=== PATIENT | female | born 1950 | race Caucasian/White ===

== ENCOUNTER → 2017-08-23 | Outpatient (CLI) | payer MEDICARE, OTHER ==
[~2017-08-23] MED LIST: ASPI1TAB57 PO; CALC1TAB87 PO; CHOL5000 PO; HUMALOG SQ; LEVEMIR SQ; LEVO137T2 PO; LORA-650 PO; LOSA25TA PO; MAGN250T11 PO; NUED20CA PO; PRAV40TA2 PO; PRAV80TA2 PO; RANI300T PO; VITA500T4 PO
[2017-08-23 09:57] LABS: AUTOMATED NEUTROPHIL # 4.4 TH/MM3 (1.8-7.7); BASOPHIL # 0.1 TH/MM3 (0-0.2); BASOPHIL % 1.1 % (0.0-2.0); EOSINOPHIL # 0.3 TH/MM3 (0-0.4); EOSINOPHIL % 3.8 % (0.0-4.0); HEMATOCRIT 45.3 % (35.0-46.0); HEMOGLOBIN 15.1 GM/DL (11.6-15.3); LYMPH % 27.8 % (9.0-44.0); MEAN CORPUSCULAR HEMOGLOBIN 26.9 PG (27.0-34.0); MEAN CORPUSCULAR HGB CONC 33.2 % (32.0-36.0); MEAN PLATELET VOLUME 7.7 FL (7.0-11.0); MONO % 7.5 % (0.0-8.0); MONOCYTE # 0.5 TH/MM3 (0-0.9); NEUT % 59.8 % (16.0-70.0); PLATELET COUNT 230 TH/MM3 (150-450); RED BLOOD COUNT 5.59 MIL/MM3 (4.00-5.30); RED CELL DISTRIBUTION WIDTH 13.9 % (11.6-17.2); WHITE BLOOD COUNT 7.3 TH/MM3 (4.0-11.0)
[2017-08-23 09:58] LABS: BACTERIA, URINE RARE /hpf; BILIRUBIN, URINE NEG (NEG); BLOOD, URINE NEG (NEG); GLUCOSE,URINE NEG (NEG); KETONE, URINE NEG (NEG); NITRITE,URINE NEG (NEG); PH, URINE 5.5 (5.0-8.5); SQUAMOUS EPITHELIAL CELL URINE 5 /hpf (0-5); URINE COLOR LIGHT-YELLOW (YELLW/STRAW); URINE LEUKOCYTE ESTERASE NEG (NEG)
[2017-08-23 10:22] LABS: ALBUMIN 4.2 GM/DL (3.4-5.0); AST (GOT) 14 U/L (15-37); BLOOD UREA NITROGEN 20 MG/DL (7-18); CALCIUM 9.1 MG/DL (8.5-10.1); CHLORIDE 105 MEQ/L (98-107); GLOMERULAR FILTRATION RATE 55 ML/MIN (>89); GLUCOSE,FASTING 185 MG/DL (74-99); SODIUM (NA) 140 MEQ/L (136-145)
[2017-08-23 10:25] LABS: ALKALINE PHOSPHATASE 70 U/L (45-117); ALT (GPT) 27 U/L (10-53); TOTAL BILIRUBIN ADULT 0.4 MG/DL (0.2-1.0)
--- NOTE | 2017-08-23 11:08 | RADRPT ---
EXAM DATE/TIME: 08/23/2017 10:32 [facility] COMPARISON: No previous studies available for comparison. INDICATIONS : Evaluae for pneumonia, pneumothorax, and communicable diseases. Pre-op excision of Ander disease, an d biopsy of previously excised area. 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 SURGICAL HISTORY : None. ENCOUNTER: Initial ACUITY: 1 day PAIN SCORE: 0/10 LOCATION: Bilateral chest FINDINGS: PA and lateral views of the chest demonstrate the lungs to be symmetrically aerated without evidence of mass, infiltrate or effusion. The cardiomediastinal contours are unremarkable. Osseous structure s are intact. CONCLUSION: 1. No active disease. Tortuous aorta. Charles Bhardwaj MD on August 23, 2017 at 11:05 Board Certified Radiologist. This report was verified electronically.
--- NOTE | 2017-08-23 13:55 | EKG ---
Date Performed: 08/23/2017 Time Performed: 09:50:52 PTAGE: 66 years EKG: Sinus rhythm NONSPECIFIC T-WAVE ABNORMALITY BORDERLINE ECG NO PREVIOUS TRACING DOCTOR: Quintin Coronado Interpretating Date/Time 08/23/2017 13:53:09
== END ==
LOC: CPRE 09:23
PROVIDERS: ATTEND Colon & Rectal Surgery
DX: Z01.812 Encounter for preprocedural laboratory examination (principal); Z01.810 Encounter for preprocedural cardiovascular examination; Z01.811 Encounter for preprocedural respiratory examination; C21.0 Malignant neoplasm of anus, unspecified
CPT/HCPCS: 36415; 71046; 80053; 81001; 82378; 85025; 93005

== ENCOUNTER → 2017-08-30 | Day surgery (SDC) | payer MEDICARE, OTHER ==
[~2017-08-30] VITALS: Ht 167.6 cm; Wt 102.0 kg
[~2017-08-30] MED LIST changes: +*RESP: ALBUTEROL 2.5 MG/3 ML NEB (PRN) PERIprocedural Use ONLY NEB ONE; +ACETAMINOPHEN/HYDROcodone 325 MG/5 MG TAB PO PRN; +CHLORHEXIDINE GLUCONATE 2 % 1 PACK (2 CLOTHS) TOPICAL PRN; +DEXAMETHASONE SOD PHOS 4 MG/ML VIAL IV ONE; +DO NOT ADM ANY ANTICOAGULANT DRUGS PRN; +GLYCOPYRROLATE 1 MG/5 ML SYRINGE IV PUSH ONE; +INSULIN HUMAN REGULAR 1,000 UNITS/10 ML VIAL SQ PRN; +LACTATED RINGER'S 1000 ML IV PRN; +LIDOCAINE 0.5%/EPINEPHrine 1:200,000 SOLN 50 ML VIAL ONE; +LIDOCAINE 1%/EPINEPHrine 1:100,000 SOLN 20 ML VIAL ONE; +LIDOCAINE HCL 1% PF 5 ML SYRINGE OTHER ONE; +METOPROLOL TARTRATE 25 MG TAB PO PRN; +NEOSTIGMINE 5 MG/5 ML SYRINGE IV PUSH ONE; +ONDANSETRON HCL 4 MG/2 ML VIAL IV ONE; +PHENYLEPH/NS 1000 MCG/10 ML SYR IV ONE; +POVIDONE IODINE 5% (ANTISEPSIS KIT) 4 APPLICATIONS EACH NARE PRN; +PROPOFOL 200 MG/20 ML AMP IV ONE; +ROCURONIUM INJ 50 MG/5 ML SYRINGE IV PUSH ONE; +SODIUM CHLORID 0.9% 500 ML IV PRN; +fentaNYL CITRATE 250 MCG/5 ML AMP ONE
--- NOTE | 2017-08-30 14:47 | MP ---
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 Right lateral elliptical incision of Rick's disease with closure. 2. Right posterior elliptical excision of Rick's disease with closure. 3. Left posterior shave biopsies of Rick's disease. 4. Punch biopsies right lateral, anterior and posterior buttocks. ANESTHESIA: General endotracheal. SURGEON: MD Cristi ESTIMATED BLOOD LOSS: Minimal. OPERATIVE FINDINGS: This patient was referred to me by Dr. Quintin Simmons and Dr. Eric Lezama for squamous cell carcinoma in situ posterior to the anus. She had shave biopsy of this showing noninvasive squamous cell carcinoma in situ. She had another area in the right perianal region on the buttocks that appeared to be early HPV or Rick's disease as well. For this reason excision was recommended. OPERATIVE TECHNIQUE: The patient was placed on the table in the left lateral position, given general endotracheal anesthesia and the anal area was injected with 0.5% Xylocaine with epinephrine. There was a healing, superficial ulcer from a previous shave biopsy done elsewhere posterior to her anus and 3 punch biopsies were taken from that area in the posterior part of it, the anterior part of it and the right lateral portion of that. Also near the edge of that on the right side posteriorly was an area of what appeared to be residual squamous cell carcinoma or Rick's disease or condyloma and this was excised in an elliptical manner and closed with interrupted 3-0 chromic sutures. Next, the left posterior area was similarly excised in 2 areas, but left open and then the right lateral buttocks/perianal region was elliptically excised and then closed with 3-0 chromic sutures in an interrupted manner. At termination of the procedure, dressing was applied. Sponge, needle and instrument counts were reported as correct. Estimated blood loss was minimal. The patient tolerated the procedure well and left the operating room in good condition. MD BELA Regalado/DELANEY , 02:06 PM , 02:46 PM
[2017-08-30 15:55] VITALS: BP 116/61; PULSE 93; RESP 16; TEMP 98.2; O2SAT 94
== END | disposition home or self-care (01) ==
LOC: HSDC 10:53
PROVIDERS: ATTEND Colon & Rectal Surgery
DX: C44.529 Squamous cell carcinoma of skin of other part of trunk (principal); C44.520 Squamous cell carcinoma of anal skin; I10 Essential (primary) hypertension; E11.9 Type 2 diabetes mellitus without complications; K21.9 Gastro-esophageal reflux disease without esophagitis; Z79.4 Long term (current) use of insulin; Z87.891 Personal history of nicotine dependence
CPT/HCPCS: 11100; 11600; 46922; 82948; 88305; 94664; J1100; J2370; J2405; J2710; J3010; J7120; J7613